=== PATIENT | female | born 1990 | race Caucasian/White ===

== ENCOUNTER 2020-07-03 18:58 | Emergency (ER) | payer SELFPAY ==
[~2020-07-03] VITALS: Ht 155 cm; Wt 97.0 kg
[~2020-07-03 18:58] MED LIST: IBUP-1773 PO; NITR-65 PO; ONDA4TAB8 PO
[2020-07-03 19:09] VITALS: BP 129/79
--- NOTE | 2020-07-03 19:17 | ED General ---
General Chief Complaint: General Problems/Pain Stated Complaint: NAUSEA Source of Information: Patient Exam Limitations: No Limitations History of Present Illness Date Seen by Provider: Jul 03, 2020 Time Seen by Provider: 19:15 Initial Comments 29-year-old female presents with some nausea and upset stomach. Reports that it was yesterday a little bit this morning. Since isn't resolved. Patient is here because she just needs a note that she was seems she go back to work. She has no symptoms at this time is feeling much better. Patient denies any vomiting or diarrhea. Patient states that she thinks it was because she ate something bad yesterday. Allergies and Home Medications Allergies Coded Allergies: NKANo Known Allergies (Verified Allergy, Unknown, 10/20/05) morphine (Verified Allergy, Unknown, 07/03/20) Home Medications Ibuprofen 600 Mg Tablet, 600 MG PO Q6H PRN for PAIN Prescribed by: YUE RICHMOND on 10/30/15 1022 Patient Home Medication List Home Medication List Reviewed: Yes Review of Systems Review of Systems Constitutional: no symptoms reported EENTM: no symptoms reported Respiratory: no symptoms reported Cardiovascular: no symptoms reported Gastrointestinal: see HPI Genitourinary: no symptoms reported Musculoskeletal: no symptoms reported Skin: no symptoms reported Past Gwsknvi-[id number] Hx Past Med/Social Hx: Reviewed Nursing Past Med/Soc Hx Patient Social History Recent Foreign Travel: No Contact w/Someone Who Travel: No Immunizations Up To Date Tetanus Booster (TDap): Unknown PED Vaccines UTD: No Past Medical History Gallbladder Reproductive Disorders: No Female Reproductive Disorders: Denies Pancreatitis Adverse Reaction/Blood Tranf: No Physical Exam Vital Signs Capillary Refill : Height, Weight, BMI Height: 5'3.00" Weight: 261lbs. oz. [id number]; 46.23 BMI Method: General Appearance: No Apparent Distress, WD/WN Neck: Non Tender, Supple Respiratory: Lungs Clear, Normal Breath Sounds, No Accessory Muscle Use Cardiovascular: Regular Rate, Rhythm, No Edema Gastrointestinal: Non Tender, Soft Extremity: Normal Capillary Refill, Normal Range of Motion Neurologic/Psychiatric: Alert, No Motor/Sensory Deficits Progress/Results/Core Measures Suspected Sepsis SIRS Temperature: Pulse: Respiratory Rate: Blood Pressure / Mean: Results/Orders Vital Signs/I&O Capillary Refill : Departure Impression Primary Impression: Nausea Disposition: 01 HOME, SELF-CARE Condition: Stable Departure-Patient Inst. Patient Instructions: Nausea and Vomiting, Adult (DC) Add. Discharge Instructions: Please establish care with a primary care provider Emergency department focuses on treating and ruling out life-threatening diseases. Whenever possible, a diagnosis is given. However, most patients are given an impression based on their history, physical exam, and workup during your brief time in the ER. Information about probable diagnosis and other ed ucational material has been provided. Please take the time to read and understand this information. It is very important that you follow up with a physician as discussed during the visit today. Failure to adhere to your follow-up instructions may lead to severe disability, injury, or so please make sure to keep your appointments or obtain one as requested. Please keep in mind the emergency department is not designed to your primary care or "family doctor" and nonurgent issues are best evaluated by an outpatient physician All discharge instructions reviewed with patient and/or family. Voiced understanding. Work/School Note: Work Release Form Date Seen in the Emergency Department: Jul 03, 2020 Return to Work: Jul 03, 2020 ALEX HERNÁNDEZ DO Jul 03, 2020 19:17
== END 2020-07-03 19:19 | disposition home or self-care (01) ==
LOC: EDUNIT# 18:58 → ER 18:59
DX: R11.0 Nausea (principal); Z88.5 Allergy status to narcotic agent
CPT/HCPCS: 99281